=== PATIENT | female | born 1950 | race Caucasian/White ===

== ENCOUNTER → 2016-11-06 17:09 | Outpatient (CLI) | payer MEDICARE, OTHER ==
[2015-09-18 14:42] VITALS: BMI 29.3
[~2016-11-06 17:09] MED LIST: COZAAR25 MG PO; DETROL LA2 MG PO; ELIQUIS2.5 MG PO; HYDROCHLOROTHIA25 MG PO; METOPROLOL TART50 MG PO; OMEPRAZOLE40 MG PO; PERCOCET 10/3251 TA1 PO; TOPAMAX25 MG PO; ZOCOR20 MG PO
== END | disposition home or self-care (01) ==
LOC: D.MAMMO 13:15
DX: Z12.31 Encounter for screening mammogram for malignant neoplasm of breast (principal)

== ENCOUNTER → 2018-04-20 15:05 | Outpatient (CLI) | payer MEDICARE, OTHER ==
[2015-09-18 14:42] VITALS: BMI 29.3
== END | disposition home or self-care (01) ==
LOC: D.MRI 15:05
DX: M54.5 Low back pain (principal)

== ENCOUNTER → 2018-11-12 16:30 | Outpatient (CLI) | payer MEDICARE, OTHER ==
[2015-09-18 14:42] VITALS: BMI 29.3
== END | disposition home or self-care (01) ==
LOC: D.MAMMO 11:15
DX: Z12.31 Encounter for screening mammogram for malignant neoplasm of breast (principal)

== ENCOUNTER → 2018-12-10 17:55 | Outpatient (CLI) | payer MEDICARE, OTHER ==
[2015-09-18 14:42] VITALS: BMI 29.3
== END | disposition home or self-care (01) ==
LOC: D.MAMMO 14:00
PROVIDERS: ATTEND Family Medicine
DX: R92.8 Other abnormal and inconclusive findings on diagnostic imaging of breast (principal)

== ENCOUNTER 2019-03-01 11:02 | Emergency (ER) | payer MEDICARE, OTHER ==
[2019-03-01 11:16] VITALS: BMI 27.5
[2019-03-01 11:58] LABS: APTT 29.8 SECONDS (22.8-39.4); INR 1.03 (0.85-1.17)
[2019-03-01 12:01] LABS: ALBUMIN 4.1 g/dL (3.4-5.0); ALKALINE PHOSPHATASE 111 U/L (46-116); ALT (SGPT) 30 U/L (10-68); BILIRUBIN - TOTAL 0.42 mg/dL (0.2-1.3); CALC OSMOLALITY 282 mosm/kg (275-300); CALCIUM 9.7 mg/dL (8.5-10.1); CARBON DIOXIDE 29.4 mmol/L (21.0-32.0); CHLORIDE - SERUM 101 mmol/L (98-107); POTASSIUM - SERUM 3.9 mmol/L (3.5-5.1); PROTEIN - SERUM 8.1 g/dL (6.4-8.2); SODIUM 140 mmol/L (136-145); UREA NITROGEN 16 mg/dL (7-18); eGFR NON AFRICAN AMERICAN 58 mL/min (90-120)
[2019-03-01 12:02] LABS: GLUCOSE 151 mg/dL (74-106)
[2019-03-01 12:08] LABS: BASOPHILS 0.3 % (0-2); EOSINOPHILS 2.2 % (0-7); HEMATOCRIT 41.1 % (36.0-48.0); HEMOGLOBIN 13.7 g/dL (12-16); IMMATURE GRANULOCYTES 0.3 % (0-5); LYMPHOCYTES 32.8 % (15-50); MCH 27.6 pg (26.0-34.0); MCHC 33.3 g/dL (31.0-37.0); MCV 82.9 fL (80.0-100.0); MONOCYTES 9.5 % (2-11); NEUTROPHILS 54.9 % (40-80); RBC 4.96 10x6/uL (4.00-5.40); RDW 14.9 % (11.5-14.5); WBC 9.5 10x3/uL (4.8-10.8)
[2019-03-01 12:13] LABS: PLATELET COUNT 319 10x3/uL (130-400)
[2019-03-01] MEDS ORDERED: FAMVIR500 MG PO (12:19)
[2019-03-01] MEDS ORDERED: STERAPRED DS 1010 MG PO (12:19)
[2019-03-01 12:28] LABS: CKMB 0.6 U/L (0.0-3.6); CREATINE KINASE 83 UL (21-215); MAGNESIUM - SERUM 1.7 mg/dL (1.8-2.4); THYROID STIMULATING HORMONE 3.51 uIU/mL (0.36-3.74); TROPONIN-I < 0.017 ng/mL (0.000-0.060)
[2019-03-01 12:33] VITALS: BP 131/72
== END 2019-03-01 12:34 | disposition home or self-care (01) ==
LOC: D.ER 11:02
PROVIDERS: Emergency Medicine
DX: G51.0 Bell's palsy (principal)

== ENCOUNTER → 2021-03-08 11:00 | Outpatient (CLI) | payer MEDICARE, OTHER ==
[2020-08-13 08:16] VITALS: BMI 26.6
[~2021-03-08 11:00] MED LIST changes: +FAMVIR500 MG PO; +KEFLEX500 MG PO; +MACROBID100 MG PO; +PHENAZOPYRIDIN200 MG PO; +STERAPRED DS 1010 MG PO
== END | disposition home or self-care (01) ==
LOC: D.MAMMO 11:00
PROVIDERS: ATTEND Family Medicine
DX: Z12.31 Encounter for screening mammogram for malignant neoplasm of breast (principal)